=== PATIENT | male | born 1965 | race Asian ===

== ENCOUNTER 2022-11-12 10:15 | Emergency (ER) | payer OTHER ==
[~2022-11-12] VITALS: Ht 167.6 cm; Wt 75.0 kg
[2022-11-12 10:33] VITALS: TEMP 98.5
[2022-11-12 12:35] VITALS: BP 129/95; PULSE 72
== END 2022-11-12 12:36 | disposition home or self-care (01) ==
LOC: COL.ER 10:15 → EDBD 10:16 → COL.ER 12:36
DX: R51.9 Headache, unspecified (principal); G47.30 Sleep apnea, unspecified; Z99.81 Dependence on supplemental oxygen; Z28.310 Unvaccinated for COVID-19
CPT/HCPCS: J1885